=== PATIENT | male | born 1980 | race Hispanic/Latino ===

== ENCOUNTER 2019-07-05 00:05 | Emergency (ER) | payer BC ==
[2019-07-05] MEDS ORDERED: Mag-Al Plus 1200 MG/1200 MG/120 MG/30 ML UDCUP ONE (00:25)
[2019-07-05] MEDS ORDERED: Lidocaine Viscous Sol 2% 15 ml UD Cup ONE (00:25)
== END 2019-07-05 01:25 | disposition home or self-care (01) ==
LOC: NAV ERS 00:05
DX: K20.9 Esophagitis, unspecified (principal); I10 Essential (primary) hypertension; Z79.899 Other long term (current) drug therapy
CPT/HCPCS: 93005